=== PATIENT | female | born 1995 | race Caucasian/White ===

== ENCOUNTER → 2018-06-09 08:11 | Outpatient (CLI) | payer OTHER, SELFPAY ==
--- NOTE | 2018-06-09 08:14 | DI.US.S_ITS ---
PROCEDURE: US OB >= 14 WEEKS FETUS INDICATIONS: 20 WEEK ANATOMY SCAN OUTSIDE/PRIOR DATING DATA: Last menstrual period (LMP): Unknown. First dating scan (date and location): 04/04/18. Estimated date of delivery (LORETA) from first dating scan: 10/07/18. TECHNIQUE: Real-time scanning was performed of the fetus, with image documentation and biometric measurements. Endovaginal scanning: No COMPARISON: [facility]ound, US, US OB < 14 WEEKS, 04/04/2018, 9:41. FINDINGS: General: A single living intrauterine gestation is present. Presentation: Breech. Placenta: Placental position is posterior, without previa. Amniotic fluid index: 10.3 cm, normal range is 5-24 cm. heart rate: 145 beats per minute. Maternal cervical canal: 4.1 cm long. Normal lower limit is 2.5 cm. biometrics: Biparietal diameter: 21 weeks 3 days Head circumference: 22 weeks 0 days Abdominal circumference: 22 weeks 0 days Femur length: 22 weeks 1 day Estimated gestational age from initial scan: 22 weeks 6 days Composite gestational age from present scan: 21 weeks 6 days Estimated weight and percentile: 467 g; 11 percentile Measurement variability for biometric dating: +/- 7 days from 14 weeks to 15 weeks 6 days gestation, +/- 10 days from 16 weeks to 21 weeks 6 days gestation, +/- 2 weeks from 22 weeks to 27 weeks 6 days gestation, +/- 3 weeks for 28 weeks gestation or later. weight reference: 4500 g or EFW >90/95% is considered macrosomia or large for gestational age. EFW <10% is small for gestational age. EFW 5% or less is considered intra-uterine growth restriction. Anatomic survey: Neuro: Ventricles are non-dilated at less than 10 mm. Cisterna magna is normal at 3-11 mm. Cerebellum is normal in size and morphology. Nuchal skin fold: Normal at less than 6 mm between 14-21 weeks gestational age. Face: Nose and lips, facial profile are normal. Spine: No evidence for spina bifida. Heart: 4-chambered heart is present, with normal ventricular outflow tracts. Diaphragm: Diaphragm is intact. Stomach: Left-sided stomach is present. Kidneys: No hydronephrosis. Normal is less than 5 mm in 2nd trimester, less than 7 mm in 3rd trimester. Cord: 3-vessel cord has orthotopic insertion. Bladder: Normal in size. Extremities: All 4 extremities identified. IMPRESSION: 1. Single living IUP redemonstrated and interval growth is lower limits of normal. 2. Normal anatomic survey. Dictated by: Cahrli Clements [facility] Interpreted: Alyssa Lynch MD on 06/09/2018 at 9:48 Approved by: Alyssa Lynch MD, PhD on 06/09/2018 at 11:53
== END ==
PROVIDERS: Visit Provider Specialist
DX: Z34.02 Encounter for supervision of normal first pregnancy, second trimester (principal); Z36.89 Encounter for other specified antenatal screening; Z3A.21 21 weeks gestation of pregnancy
CPT/HCPCS: 76811

== ENCOUNTER → 2018-07-12 13:44 | Outpatient (CLI) | payer OTHER, SELFPAY ==
[2018-07-12 15:37] LABS: Add Manual Diff / Slide Review NO; Basophils Percent Auto 0.3 % (0-2); Eosinophils Percent Auto 0.6 % (2-4); Hematocrit 33.1 % (36-46); Hemoglobin 11.3 g/dL (12.0-16.0); Lymphocytes Percent Auto 11.3 % (25-40); Mean Corpuscular Hemoglobin 29.6 PG (26-34); Mean Corpuscular Volume 87.1 fL (80-100); Monocytes Percent Auto 7.2 % (3-14); Neutrophils Absolute Auto 7700 /uL (3000-5900); Neutrophils Percent Auto 80.6 % (50-75); Platelet Count 209 X10^3/uL (150-400); Red Cell Distribution Width 13.2 % (11.6-14.8); White Blood Cell Count 9.5 X10^3/uL (4.5-11.0)
[2018-07-12 16:06] LABS: GTT (PREG) 1 Hour PP 50gm Dose 95 mg/dL (76-139)
[2018-07-12 16:58] LABS: Hep C Virus Ab w/Reflex Quant NEGATIVE s/c (NEGATIVE)
[2018-07-15 15:29] LABS: HSV 2 IGG AB < 0.90 index (< 0.90); HSV1IGG < 0.90 index (< 0.90)
== END ==
PROVIDERS: Family Medicine; Visit Provider Specialist
DX: Z34.02 Encounter for supervision of normal first pregnancy, second trimester (principal); Z3A.26 26 weeks gestation of pregnancy
CPT/HCPCS: 36415; 82950; 85025; 86695; 86696; 86787; 86803

== ENCOUNTER → 2018-09-12 12:32 | Outpatient (CLI) | payer OTHER, SELFPAY ==
[2018-09-13 13:26] LABS: Strep Grp B PCR NEG for Grp B Strep
== END ==
PROVIDERS: Visit Provider Specialist
DX: Z3A.36 36 weeks gestation of pregnancy (principal)
CPT/HCPCS: 87653

== ENCOUNTER 2018-09-17 12:17 | Outpatient (CLI) | payer OTHER, SELFPAY | END 2018-09-17 13:23 | disposition home or self-care (01) | LOC: LABOR 12:26 → OB 09-20 11:16 | PROVIDERS: PCP Specialist; Visit Provider Obstetrics & Gynecology | DX: Z03.71 Encounter for suspected problem with amniotic cavity and membrane ruled out (principal); Z3A.37 37 weeks gestation of pregnancy | CPT/HCPCS: 59025; 84112; G0378; G0379 ==

== ENCOUNTER 2018-09-18 03:30 | Inpatient (IN) | payer OTHER, SELFPAY ==
[2018-09-18 04:20] VITALS: BP 120/60
[2018-09-18 05:03] LABS: Add Manual Diff / Slide Review NO; Basophils Absolute Auto 100 /uL (0-100); Basophils Percent Auto 0.5 % (0-2); Eosinophils Absolute Auto 100 /uL (0-450); Eosinophils Percent Auto 0.5 % (2-4); Hematocrit 30.4 % (36-46); Lymphocytes Absolute Auto 1500 /uL (1100-4500); Lymphocytes Percent Auto 12.2 % (25-40); Mean Corpuscular HGB Conc 32.9 % (30-36); Mean Corpuscular Hemoglobin 25.7 PG (26-34); Mean Corpuscular Volume 77.9 fL (80-100); Monocytes Absolute Auto 800 /uL (0-900); Monocytes Percent Auto 6.8 % (3-14); Neutrophils Absolute Auto 9600 /uL (1500-7000); Platelet Count 233 X10^3/uL (150-400); Red Cell Distribution Width 14.6 % (11.6-14.8)
[2018-09-18] MEDS: miSOPROStol 25 MCG TABLET VAG (05:28)
[2018-09-18] MEDS: ONDANSETRON 4 MG/2 ML INJ IV ×2 (10:46→17:43)
--- NOTE | 2018-09-18 11:22 | PM.OBHP.1 ---
OB HPI Date/Time Date of admission: 09/18/18 Date Patient Seen: 09/18/18 Time Patient Seen: 09:29 History of Present Condition Chief complaint: OBSERVATION OF LABOR : 1 Para: 0 Estimated Date of Delivery: 10/04/18 Estimated Gestational Age (weeks): 37 Narrative: Raquel Gary is a 23 year old female with spontaneous rupture membranes at 3:00 a.m. on 09/18/2018. On initial evaluation her cervix was very unfavorable so she received 1 dose of Cytotec. History of Present care: good care and initiated at week # (15) Dating criteria: LMP confirmed by 2nd trimester US Ultrasounds: normal mid trimester US Obstetrical complications: none Medical complications: none Preadmission Labs Blood type: A (+) positive -: Antibody screen: negative, GBS status: negative, HBsAG: negative, HIV: negative and RPR/VDLR: negative -: Chlamydia screen: not detected and Gonorrhea screen: not detected -: Rubella: immune HCAB: negative Quad screen: Normal Evaluation Evaluation Baseline heart rate: 120 Variability: Moderate (11-25) monitor accelerations: Present monitor decelerations: Variable (Periodic) Contraction Frequency (minutes): 2 Uterine Contraction Intensity: Moderate Category of Tracing: I Cervical dilation (cm): 1 Cervical effacement (%): 80 station: -1 Laboratory results: Laboratory Tests 09/18/18 09/18/18 04:36 04:36 WBC 12.0 H RBC 3.90 L Hgb 10.0 L Hct 30.4 L MCV 77.9 L MCH 25.7 L MCHC 32.9 RDW 14.6 Plt Count 233 Neut % (Auto) 80.0 H Lymph % (Auto) 12.2 L [place] % (Auto) 6.8 Eos % (Auto) 0.5 L Baso % (Auto) 0.5 Neut # (Auto) 9600 H Lymph # (Auto) 1500 [place] # (Auto) 800 Eos # (Auto) 100 Baso # (Auto) 100 Blood Type A Positive Antibody Screen Negative Non-invasive Membranes Rupture Test: positive PFSH Social History Smoking Status: Never smoker Meds Home Medications Medication Instructions Recorded Confirmed Type 1 tab PO DAILY 05/27/18 09/18/18 History vitamin,calcium,[id number] acid tablet Allergies Allergy/AdvReac Type Severity Reaction Status Date / Time No Known Drug Allergies Allergy Unverified 05/27/18 10:49 Review of Systems Review of Systems Patient denies signs and symptoms of preeclampsia. No fevers. All systems reviewed & are unremarkable except as noted in HPI and below Exam Vital Signs (past 8 hours): - 09/18/18 04:20 Blood Pressure 120/60 Oxygen Delivery Method Room Air Narrative Exam Narrative: HEENT exam within normal limits. Lungs are clear to auscultation percussion. Heart is regular rate and rhythm no S3-S4 or murmurs. Abdomen is soft with no tenderness to palpation. Extremities with trace edema and nontender. Objective Labs Result Diagrams: 09/18/18 04:36 Labs: Laboratory Results - last 24 hr 09/18/18 09/18/18 04:36 04:36 WBC 12.0 H RBC 3.90 L Hgb 10.0 L Hct 30.4 L MCV 77.9 L MCH 25.7 L MCHC 32.9 RDW 14.6 Plt Count 233 Neut % (Auto) 80.0 H Lymph % (Auto) 12.2 L [place] % (Auto) 6.8 Eos % (Auto) 0.5 L Baso % (Auto) 0.5 Neut # (Auto) 9600 H Lymph # (Auto) 1500 [place] # (Auto) 800 Eos # (Auto) 100 Baso # (Auto) 100 Blood Type A Positive Antibody Screen Negative Assessment and Plan (1) 37 weeks gestation of : Current visit: Yes Status: Acute (2) Premature rupture of membranes: Current visit: Yes Status: Acute Plan: Plan: 23-year-old 1 with spontaneous rupture membranes. She did not initially started in labor so she was given Cytotec. Will monitor her for need for Pitocin. Will monitor for signs of infection. Anticipate vaginal delivery.
[2018-09-18] MEDS: fentaNYL 100 MCG/2 ML INJ IV ×2 (11:27→13:05)
[2018-09-18] MEDS: LACTATED RINGERS 1,000 ML 100 ML IV (14:13)
[2018-09-18] MEDS: OXYTOCIN 10 UNIT/ML VIAL IM (18:10)
--- NOTE | 2018-09-18 18:28 | PM.OBPRVD ---
Delivery date: 09/18/18 Intrapartal events: None Cervical ripening method: per misoprostal protocol (X1) Delivery monitor: external FHT and external uterine Route of delivery: L&D Laceration Description: Perineal - 1st Degree Delivery repair: chromic (3-0) Estimated blood loss (mL): 100 Anesthesia type: Epidural Narrative: Patient arrived on Labor and delivery with spontaneous rupture membranes. She was not in active labor so she was given Cytotec intravaginally x1. The patient began progressing in labor. She received fentanyl followed by epidural for pain control. heart tones 1st stage of labor were category 1 to category 2 with occasional variable decelerations but overall good reactivity. The patient progressed quickly and delivered spontaneously over an intact perineum. There was a nuchal cord x1. The viable female was placed on maternal abdomen. After the cord stopped pulsating the cord was clamped cut and cord bloods obtained. The placenta delivered spontaneously, intact, with 3 vessels. There were no cervical or vaginal tears. There was a first-degree perineal tear that was repaired with a [id number] suture of 3 0 chromic suture. Estimated blood loss 100 cc. Both mother doing well. Baby weighed 5 lb 13 oz, 2646 g Baby 1: gender: Female Presentation: vertex position: Right Occiput Anterior Placenta delivery description: Spontaneous cord vessel description: Nuchal Cord (Loose x1) score (1 min): 8 score (5 min): 9 Plan for aftercare: Routine care.
[2018-09-18 22:29] VITALS: TEMP 36.9
[2018-09-18] MEDS: IBUPROFEN 600 MG TABLET PO (22:29)
[2018-09-19 06:50] LABS: Hematocrit 27.3 % (36-46); Hemoglobin 8.9 g/dL (12.0-16.0)
[2018-09-19] MEDS: IBUPROFEN 600 MG TABLET PO ×3 (09:30→21:25)
[2018-09-19] MEDS: FERROUS SULFATE 325 MG TABLET PO (09:36)
[2018-09-19] MEDS: DOCUSATE 250 MG CAPSULE PO (09:40)
[2018-09-19] MEDS: LANOLIN OINT 7 GM 1 APPLIC TOP (14:49)
--- NOTE | 2018-09-19 19:24 | PM.OBPN.1 ---
Subjective - OB Interval history: day #1 Vaginal delivery. Patient denies any signs or symptoms of preeclampsia. She has minimal pain. She is urinating and ambulating well. Patient comments: no complaints [place] baby status: doing well feeding status: exclusively breast feeding Date Patient Seen: 09/19/18 Time Patient Seen: 19:25 Exam Vital Signs (past 8 hours): Temperature 98.9?, pulse of 83, blood pressure 115/69 Oxygen Delivery Method Room Air Narrative Exam Narrative: Abdomen is soft, nontender. Uterus is firm, at U, nontender. Mild lochia. Extremities with trace edema and nontender. Objective Labs Result Diagrams: 09/19/18 06:35 Labs: Laboratory Results - last 24 hr 09/19/18 06:35 Hgb 8.9 L Hct 27.3 L Assessment & Plan (1) 37 weeks gestation of : Status: Acute Current Visit: Yes (2) Premature rupture of membranes: Status: Acute Current Visit: Yes (3) Vaginal delivery: Problem details: Normal day 1. Plan is for routine care. Likely home tomorrow. Status: Acute Current Visit: Yes Time Spent With Patient Total time spent is greater than 50% in coordination of care (as documented) at patient's floor/unit and/or counseling patient: less than 15 minutes
[2018-09-20] MEDS: DOCUSATE 250 MG CAPSULE PO (08:19)
[2018-09-20] MEDS: IBUPROFEN 600 MG TABLET PO ×2 (08:19→16:19)
[2018-09-20] MEDS: FERROUS SULFATE 325 MG TABLET PO (08:19)
--- NOTE | 2018-09-20 09:45 | PM.OBDS.1 ---
Discharge Providers Date of admission: 09/18/18 04:25 Primary care physician: Jaimie Lindquist MD Consults: 09/18/18 19:39 Consult to Rehabilitation Assistant Routine Comment: Discharge provider: Jaimie Lindquist MD Discharge Date: 09/20/18 Summary Date Patient Seen: 09/20/18 Time Patient Seen: 09:46 Hospital Course: Patient arrived on Labor and delivery with premature rupture membranes. She was given Cytotec to induce labor. She received an epidural catheter for pain control. She had spontaneous vaginal delivery with repair of first-degree laceration. She had a viable female infant weighing 5 lb 13 oz, 2646 g. Patient did well . She denies any signs or symptoms of preeclampsia. She is urinating and ambulating well. Blood pressure 117/74, pulse of 88, temperature 98.3? Patient's abdomen is soft, nontender. Uterus is firm, at U, nontender. Repair is intact. Mild lochia. Extremities without edema and nontender. Patient's blood type is A positive and she is rubella immune. Peripartum Data Infant Delivery Method: Natural Vaginal Laceration description: Vaginal - 1st Degree Procedures: Cytotec induction, epidural catheter, vaginal delivery, repair of first-degree tear complications: none Discharge Diagnosis (1) 37 weeks gestation of : Status: Acute (2) Premature rupture of membranes: Status: Acute (3) Vaginal delivery: Status: Acute Problem Details: Normal day 1. Plan is for routine care. Likely home tomorrow. Status at Discharge Functional status at discharge: independent ambulation Overall status at discharge: patient is progressing back to baseline Time Spent with Patient Total time spent providing and/or coordinating discharge services: Less than 30 minutes Objective Labs Result Diagrams: 09/19/18 06:35 Discharge Plan Discharge Plan Patient Disposition: Home Discharge Med Rec/Prescriptions Prescriptions: New ferrous sulfate 325 mg (65 mg iron) Tablet 325 mg PO BIDWM Qty: 60 RF: 0 ibuprofen 600 mg Tablet 600 mg PO Q6HR PRN (Reason: Pain, Mild (1-3)) Qty: 30 RF: 0 docusate sodium 250 mg Capsule 250 mg PO BEDTIME Qty: 20 RF: 0 Follow up/Referrals: Jaimie Lindquist MD [Primary Care Provider] - 1 Month ( exam) Provider Discharge Instructions Diet: Regular Activity: Nothing in vagina for 4 weeks Skin/Wound/Dressing Care Report to your healthcare provider any signs of infection, such as:: chills, fever and increased pain Discharge Data Primary Care Provider: Jaimie Lindquist Attending Provider: Jaimie Lindquist Admit Date/Time: 09/18/18 04:25
[2018-09-20 10:19] VITALS: BP 117/74; PULSE 88; RESP 16; TEMP 36.8
[2018-09-20 14:07] VITALS: BP 117/74; PULSE 88; RESP 16; TEMP 36.8
== END 2018-09-20 16:25 | disposition home or self-care (01) | DRG 807 ==
PROVIDERS: Admitting Provider Specialist; PCP Specialist; Visit Provider Specialist
DX: O42.02 Full-term premature rupture of membranes, onset of labor within 24 hours of rupture (principal); Z37.0 Single live birth; Z3A.37 37 weeks gestation of pregnancy; O70.0 First degree perineal laceration during delivery; O69.1XX0 Labor and delivery complicated by cord around neck, with compression, not applicable or unspecified
CPT/HCPCS: 01967; 36415; 59050; 59400; 76815; 84112; 85014; 85018; 85025; 86850; 86900; 86901; G0378; G0379; J2405; J2590; J3010